=== PATIENT | male | born 1940 | race Caucasian/White ===

== ENCOUNTER 2016-11-04 07:18 | Emergency (ER) | payer MEDICARE ==
[~2016-11-04] VITALS: Ht 177.8 cm; Wt 91.6 kg
[~2016-11-04 07:18] MED LIST: ALPR0.25 PO; HYDR-3326 PO; ROSU5TAB PO; TELM80TA2 PO; TRAM50TA2 PO; [UNRECOGNIZED DRUG - CODE] IM
--- NOTE | 2016-11-04 07:20 | NUR ---
AAOX2, BIBRA 99 FROM HOME C/O SEIZURE UPON GETTING UP, [id number] IN THE FIELD. POST-ICTAL BUT IMPROVING PER PARAMEDICS. HX OF SEIZURE. SKIN IS WARM AND DRY. NO OBVIOUS TRAUMA NOTED. RESP IS EVEN AND UNLABORED WITH NAD NOTED. SEIZURE PRECAUTION IN PLACE. ASSISTED TO HOSPITAL GOWN, PLACED ON MONITOR. DR MEADE AT BS FOR EVAL.
[2016-11-04] MEDS ORDERED: IV NS 0.9% 500 ML IV ONE (07:25)
[2016-11-04] MEDS ORDERED: IV SET PRIMARY 1 EA INFUS.SET MC ONE (07:25)
[2016-11-04] MEDS ORDERED: LORAZEPAM INJ 2 MG/ML VIAL ONE (07:26)
[2016-11-04] MEDS ORDERED: LORAZEPAM INJ 2 MG/ML VIAL IVP ONE (07:30)
[2016-11-04] MEDS ORDERED: IV NS 0.9% 500 ML BAG IV ONE (07:30)
--- NOTE | 2016-11-04 07:34 | NUR ---
DR MEADE TALKING TO AT BS.
[2016-11-04 07:54] LABS: BASOPHILS # (AUTO) 0.1 /CMM (0.0-0.2); BASOPHILS % (AUTO) 0.5 % (0.0-2.0); EOSINOPHILS # (AUTO) 0.3 /CMM (0.0-0.7); EOSINOPHILS % (AUTO) 2.2 % (0.0-6.0); HEMATOCRIT 49 % (39-51); HEMOGLOBIN 15.4 g/dL (13.5-17.5); LYMPHOCYTES # (AUTO) 5.9 /CMM (0.8-4.8); MEAN CORPUSCULAR HEMOGLOBIN 26 PG (26.0-33.0); MEAN CORPUSCULAR HGB CONC 32 g/dl (31.0-36.0); MEAN CORPUSCULAR VOLUME 82 fL (80-96); MONOCYTES # (AUTO) 1.2 /CMM (0.1-1.30); NEUTROPHILS # (AUTO) 6.2 /CMM (1.8-8.9); NEUTROPHILS % (AUTO) 45.3 % (43.0-81.0); PLATELET COUNT (AUTO) 282 /CMM (150-450); RDW COEFFICIENT OF VARIATION 17.1 (11.5-15.0); RED BLOOD CELL COUNT(AUTO) 5.97 MIL/uL (4.5-6.0); WHITE BLOOD COUNT (AUTO) 13.7 K/uL (4.3-11.0)
[2016-11-04 08:05] LABS: CARBON DIOXIDE 13 mmol/L (21-32); CHLORIDE 100 mmol/L (98-107); CREATININE 1.8 mg/dL (0.6-1.3); GLUCOSE 175 mg/dL (74-106); POTASSIUM 3.6 mmol/L (3.5-5.1); SODIUM SERUM 139 mmol/L (136-145); UREA NITROGEN, BLOOD 20 mg/dL (7-18)
[2016-11-04 08:11] LABS: PHENOBARBITAL 1 ug/ml (15-39); PHENYTOIN (DILANTIN) < 0.5 ug/ml (10.0-20.0); VALPROIC ACID 2 ug/mL (50-100)
--- NOTE | 2016-11-04 08:50 | NUR ---
IV removed. Catheter intact and site benign. Pressure and 4x4 applied to site. No bleeding noted.
--- NOTE | 2016-11-04 08:57 | NUR ---
PT. VERBALIZED UNDERSTANDING OF AFTERCARE INSTRUCTIONS.Patient discharged to home in stable condition. Written and verbal after care instructions given. Patient verbalizes understanding of instruction.
[2016-11-04 08:58] VITALS: BP 131/62
== END 2016-11-04 08:58 | disposition home or self-care (01) ==
LOC: ER 07:19
DX: G40.409 Other generalized epilepsy and epileptic syndromes, not intractable, without status epilepticus (principal); I10 Essential (primary) hypertension; F40.00 Agoraphobia, unspecified; Z88.8 Allergy status to other drugs, medicaments and biological substances
CPT/HCPCS: 36415; 70450-TC; 80048-TC; 80164-TC; 80184-TC; 80185-TC; 82962-TC; 85025-TC; A4606; J2060; J7040; Z7610

== ENCOUNTER 2017-08-28 16:07 | Emergency (ER) | payer MEDICARE ==
[~2017-08-28] VITALS: Ht 170.2 cm; Wt 86.2 kg
[~2017-08-28 16:07] MED LIST changes: +CYAN-6 IM; -HYDR-3326 PO; +HYDR-3974 PO; -[UNRECOGNIZED DRUG - CODE] IM
[2017-08-28] MEDS ORDERED: IV NS 0.9% 1,000 ML BAG IV ONE (16:30)
--- NOTE | 2017-08-28 16:32 | NUR ---
20G RIGHT AC IV STARTED, BLOOD SAMLPE OBTAINED AND SENT TO LAB. BLOOD CULTURES OBTAINED AND SENT TO LAB. MEDICATED PT ORDERED
[2017-08-28 16:48] LABS: EOSINOPHILS # (AUTO) 0.4 /CMM (0.0-0.7); EOSINOPHILS % (AUTO) 4.3 % (0.0-6.0); HEMATOCRIT 50 % (39-51); HEMOGLOBIN 16.7 g/dL (13.5-17.5); LYMPHOCYTES # (AUTO) 0.5 /CMM (0.8-4.8); LYMPHOCYTES % (AUTO) 5.3 % (20.0-44.0); MEAN CORPUSCULAR HEMOGLOBIN 27 PG (26.0-33.0); MEAN CORPUSCULAR HGB CONC 34 g/dl (31.0-36.0); MEAN CORPUSCULAR VOLUME 79 fL (80-96); MONOCYTES # (AUTO) 0.8 /CMM (0.1-1.30); MONOCYTES % (AUTO) 8.4 % (2.0-12.0); NEUTROPHILS # (AUTO) 7.6 /CMM (1.8-8.9); PLATELET COUNT (AUTO) 190 /CMM (150-450); RDW COEFFICIENT OF VARIATION 17.6 (11.5-15.0); RED BLOOD CELL COUNT(AUTO) 6.25 MIL/uL (4.5-6.0); WHITE BLOOD COUNT (AUTO) 9.2 K/uL (4.3-11.0)
[2017-08-28 17:04] LABS: ALANINE AMINOTRANSFERASE 90 U/L (12-78); ALBUMIN 3.9 g/dL (3.4-5.0); ALKALINE PHOSPHATASE 62 U/L (46-116); ASPARTATE AMINOTRANSFERASE 51 U/L (15-37); BILIRUBIN,DIRECT 0.4 mg/dL (0.0-0.2); BILIRUBIN,TOTAL 1.4 mg/dL (0.2-1.0); CALCIUM, SERUM 9.1 mg/dL (8.5-10.1); CARBON DIOXIDE 27 mmol/L (21-32); CHLORIDE 97 mmol/L (98-107); CREATININE 1.6 mg/dL (0.6-1.3); GLUCOSE 112 mg/dL (74-106); POTASSIUM 4.3 mmol/L (3.5-5.1); SODIUM SERUM 132 mmol/L (136-145); TOTAL PROTEIN, SERUM 7.4 g/dL (6.4-8.2); UREA NITROGEN, BLOOD 22 mg/dL (7-18)
[2017-08-28 17:19] LABS: INR 1.14 (0.87-1.13)
--- NOTE | 2017-08-28 17:32 | NUR ---
PT AMB TO BR VOIDED UA SENT TO LAB BACK TO BED
[2017-08-28 18:08] LABS: APPEARANCE,URINE CLEAR (CLEAR); BILIRUBIN,URINE NEGATIVE (NEGATIVE); BLOOD, URINE NEGATIVE Ery/uL (NEGATIVE); COLOR,URINE YELLOW (YELLOW); KETONES,URINE TRACE (NEGATIVE); LEUKOCYTE ESTERASE ,URINE NEGATIVE (NEGATIVE); NITRITE, URINE NEGATIVE (NEGATIVE); PROTEIN,URINE 1+ mg/dl (NEGATIVE); UGLUCOSE NEGATIVE (NEGATIVE); UROBILINOGEN,URINE 0.2 EU/dL (0.2)
[2017-08-28 18:21] LABS: BACTERIA,URINE Rare /HPF (None Seen); RBC,URINE 0-2 /HPF (0-2); SQUAMOUS EPITHELIAL CELL,UR Rare /HPF (None Seen); WBC,URINE 0-2 /HPF (0-3)
--- NOTE | 2017-08-28 18:34 | NUR ---
PT. VERBALIZED UNDERSTANDING OF AFTERCARE INSTRUCTIONS.IV removed. Catheter intact and site benign. Pressure and 4x4 applied to site. No bleeding noted.Patient discharged to home in stable condition. Written and verbal after care instructions given. Patient verbalizes understanding of instruction.
[2017-08-28 18:38] VITALS: BP 169/100
== END 2017-08-28 18:39 | disposition home or self-care (01) ==
LOC: ER 16:09
DX: R50.9 Fever, unspecified (principal); M79.1 Myalgia; I10 Essential (primary) hypertension; I25.2 Old myocardial infarction; F41.9 Anxiety disorder, unspecified; Z96.641 Presence of right artificial hip joint; Z96.611 Presence of right artificial shoulder joint; Z95.811 Presence of heart assist device; Z88.0 Allergy status to penicillin; Z88.8 Allergy status to other drugs, medicaments and biological substances
CPT/HCPCS: 36415; 71045; 80048; 80076; 81001; 83605; 84484; 85025; 85730; 87040 ×2; 87086; 87804; 93005; 96360; 99285; A4606; 81000-TC; 87400; Z7610

== ENCOUNTER 2019-11-28 11:51 | Emergency (ER) | payer MEDICARE ==
[~2019-11-28] VITALS: Ht 170.2 cm; Wt 86.2 kg
--- NOTE | 2019-11-28 12:00 | NUR ---
BIB SENT BY DR. WEI FOR EKG. NO CHEST PAIN PER PATIENT
[2019-11-28] MEDS ORDERED: AMLODIPINE BESYLATE 5 MG TABLET PO ONE (12:30)
--- NOTE | 2019-11-28 12:31 | NUR ---
HIGH BLOOD PRESSURE, INFORMED DR. MEDEROS.
[2019-11-28] MEDS ORDERED: AMLODIPINE BESYLATE 5 MG TABLET ONE (12:34)
--- NOTE | 2019-11-28 13:06 | NUR ---
Patient a/ox4, breathing even and unlabored, no sob noted, denies chest pain, EKG copy provided. Patient discharged to home in stable condition. Written and verbal after care instructions given. Patient verbalizes understanding of instruction.
[2019-11-28 13:10] VITALS: BP 160/90
== END 2019-11-28 13:10 | disposition home or self-care (01) ==
LOC: ER 11:51
DX: R61 Generalized hyperhidrosis (principal); I10 Essential (primary) hypertension; F41.9 Anxiety disorder, unspecified; Z98.890 Other specified postprocedural states; Z88.0 Allergy status to penicillin; Z88.8 Allergy status to other drugs, medicaments and biological substances; Z79.899 Other long term (current) drug therapy

== ENCOUNTER 2020-08-06 23:14 | Emergency (ER) | payer MEDICARE ==
[~2020-08-06] VITALS: Ht 165.1 cm; Wt 77.1 kg
[2020-08-06] MEDS ORDERED: ONDANSETRON 4 MG TAB.RAPDIS ONE (23:48)
[2020-08-06] MEDS ORDERED: MORPHINE SULFATE INJ 4 MG/ML DISP.SYRIN ONE (23:48)
--- NOTE | 2020-08-06 23:50 | NUR ---
BROUGHT TO CT
[2020-08-06] MEDS: ONDANSETRON 4 MG TAB.RAPDIS SL ONE (23:55)
[2020-08-06] MEDS: MORPHINE SULFATE INJ 2 MG/ML DISP.SYRIN IM ONE (23:55)
--- NOTE | 2020-08-07 01:28 | NUR ---
Patient discharged to home in stable condition. Written and verbal after care instructions given. Patient verbalizes understanding of instruction. Pt ambulated out of ED. VSS.
[2020-08-07 01:32] VITALS: BP 151/89
== END 2020-08-07 01:32 | disposition home or self-care (01) ==
LOC: ER 23:14
DX: G89.29 Other chronic pain (principal); M54.5 Low back pain; I10 Essential (primary) hypertension; F41.9 Anxiety disorder, unspecified; Z98.890 Other specified postprocedural states; Z96.641 Presence of right artificial hip joint; Z88.0 Allergy status to penicillin; Z88.8 Allergy status to other drugs, medicaments and biological substances; Z79.899 Other long term (current) drug therapy
CPT/HCPCS: 72131; 96372; 99284; J2270; Q0162

== ENCOUNTER 2024-05-15 02:18 | Inpatient (IN) | payer MEDICARE ==
[~2024-05-15] VITALS: Ht 170.2 cm; Wt 81.6 kg
[2024-05-15 03:32] LABS: BASOPHILS % (AUTO) 0.1 % (0.0-2.0); EOSINOPHILS # (AUTO) 0.2 K/uL (0.0-0.7); EOSINOPHILS % (AUTO) 1.4 % (0.0-6.0); HEMATOCRIT 50 % (39-51); HEMOGLOBIN 16.1 g/dL (13.5-17.5); LYMPHOCYTES # (AUTO) 1.1 K/uL (0.8-4.8); LYMPHOCYTES % (AUTO) 6.7 % (20.0-44.0); MEAN CORPUSCULAR HEMOGLOBIN 28 PG (26.0-33.0); MEAN CORPUSCULAR HGB CONC 32 g/dl (31.0-36.0); MEAN CORPUSCULAR VOLUME 87 fL (80-96); MONOCYTES # (AUTO) 1.3 K/uL (0.1-1.30); MONOCYTES % (AUTO) 7.8 % (2.0-12.0); NEUTROPHILS # (AUTO) 14.1 K/uL (1.8-8.9); PLATELET COUNT (AUTO) 234 K/uL (150-450); RED BLOOD CELL COUNT(AUTO) 5.71 MIL/uL (4.5-6.0); RED CELL DISTRIBUTION WIDTH 18.5 % (11.5-15.0); WHITE BLOOD COUNT (AUTO) 16.8 K/uL (4.3-11.0)
[2024-05-15 03:40] LABS: CALCIUM, SERUM 9.8 mg/dL (8.5-10.1); CARBON DIOXIDE 27 mmol/L (21-32); CHLORIDE 104 mmol/L (98-107); CREATININE 1.6 mg/dL (0.6-1.3); GLUCOSE 111 mg/dL (74-106); POTASSIUM 4.6 mmol/L (3.5-5.1); SODIUM SERUM 139 mmol/L (136-145); UREA NITROGEN, BLOOD 23 mg/dL (7-18)
[2024-05-15 03:52] LABS: ALANINE AMINOTRANSFERASE 27 U/L (12-78); ALBUMIN 4.1 g/dL (3.4-5.0); ALKALINE PHOSPHATASE 66 U/L (46-116); ASPARTATE AMINOTRANSFERASE 16 U/L (15-37); BILIRUBIN,TOTAL 1.2 mg/dL (0.2-1.0); NT-PRO BNP 333 pg/mL (0-125); TOTAL PROTEIN, SERUM 7.2 g/dL (6.4-8.2)
[2024-05-15] MEDS: IV NS 0.9% 1,000 ML IV ONE (04:29)
[2024-05-15 04:36] LABS: APPEARANCE,URINE CLEAR (CLEAR); BILIRUBIN,URINE NEGATIVE (NEGATIVE); BLOOD, URINE NEGATIVE Ery/uL (NEGATIVE); COLOR,URINE YELLOW (YELLOW); KETONES,URINE NEGATIVE (NEGATIVE); LEUKOCYTE ESTERASE ,URINE NEGATIVE (NEGATIVE); NITRITE, URINE NEGATIVE (NEGATIVE); PROTEIN,URINE NEGATIVE (NEGATIVE); UGLUCOSE NEGATIVE (NEGATIVE); UROBILINOGEN,URINE 0.2 EU/dL (0.2)
[2024-05-15] MEDS ORDERED: VANCOMYCIN 1 GM /D5W 250 ML PB IV ONE (05:15)
[2024-05-15] MEDS: VANCOMYCIN HCL 1.25 GM in IV D5W 260 ML IV ONE (05:16)
[2024-05-15] MEDS ORDERED: Z GUARD REMEDY 4 OZ OINT TP PRN (06:00)
[2024-05-15] MEDS ORDERED: ACETAMINOPHEN 650 MG/SUPP.RECT RC PRN (06:00)
[2024-05-15] MEDS ORDERED: ONDANSETRON HCL/PF 4 MG/2 ML VIAL IVP PRN (06:00)
[2024-05-15] MEDS ORDERED: IOHEXOL-300 100 ML VIAL IV ONE (06:07)
[2024-05-15] MEDS ORDERED: CT SWABBABLE VALVE TRANS SET 1 EA INFUS.SET MC ONE (06:08)
[2024-05-15] MEDS ORDERED: IV NS 0.9% 250 ML IV ONE (06:08)
[2024-05-15] MEDS ORDERED: MORPHINE SULFATE INJ 2 MG/ML DISP.SYRIN ONE (06:59)
[2024-05-15] MEDS ORDERED: ONDANSETRON HCL/PF 4 MG/2 ML VIAL ONE (06:59)
[2024-05-15] MEDS: ONDANSETRON HCL/PF - ER 4 MG/2 ML VIAL IV ONE (07:03)
[2024-05-15] MEDS: MORPHINE SULFATE INJ 2 MG/ML DISP.SYRIN IV ONE (07:03)
[2024-05-15 07:14] LABS: BASOPHILS % (AUTO) 0.2 % (0.0-2.0); EOSINOPHILS # (AUTO) 0.2 K/uL (0.0-0.7); EOSINOPHILS % (AUTO) 1.2 % (0.0-6.0); HEMATOCRIT 49 % (39-51); HEMOGLOBIN 15.6 g/dL (13.5-17.5); LYMPHOCYTES # (AUTO) 1.3 K/uL (0.8-4.8); LYMPHOCYTES % (AUTO) 7.7 % (20.0-44.0); MEAN CORPUSCULAR HEMOGLOBIN 28 PG (26.0-33.0); MEAN CORPUSCULAR HGB CONC 32 g/dl (31.0-36.0); MEAN CORPUSCULAR VOLUME 87 fL (80-96); MONOCYTES # (AUTO) 1.2 K/uL (0.1-1.30); MONOCYTES % (AUTO) 7.2 % (2.0-12.0); NEUTROPHILS # (AUTO) 13.7 K/uL (1.8-8.9); NEUTROPHILS % (AUTO) 83.7 % (43.0-81.0); PLATELET COUNT (AUTO) 210 K/uL (150-450); RED BLOOD CELL COUNT(AUTO) 5.57 MIL/uL (4.5-6.0); RED CELL DISTRIBUTION WIDTH 18.5 % (11.5-15.0); WHITE BLOOD COUNT (AUTO) 16.3 K/uL (4.3-11.0)
[2024-05-15 07:18] LABS: BILIRUBIN,DIRECT 0.4 mg/dL (0.0-0.2)
[2024-05-15 07:31] LABS: CALCIUM, SERUM 9.1 mg/dL (8.5-10.1); CARBON DIOXIDE 27 mmol/L (21-32); CHLORIDE 102 mmol/L (98-107); CREATININE 1.5 mg/dL (0.6-1.3); GLUCOSE 110 mg/dL (74-106); MAGNESIUM 1.7 mg/dL (1.8-2.4); NT-PRO BNP 381 pg/mL (0-125); PHOSPHORUS 2.7 mg/dL (2.5-4.9); POTASSIUM 4.3 mmol/L (3.5-5.1); SODIUM SERUM 136 mmol/L (136-145); UREA NITROGEN, BLOOD 20 mg/dL (7-18)
[2024-05-15] MEDS ORDERED: LEVOFLOXACIN 750 MG /D5W 150ML 150 ML IV ONE (07:51)
[2024-05-15 08:00] LABS: LACTIC ACID REFLEX 2.7 mmol/L (0.4-1.9)
[2024-05-15] MEDS: LEVOFLOXACIN 750 MG /D5W 150ML PIGGYBACK IV ONE (08:02)
[2024-05-15 08:35] VITALS: O2SAT 98
[2024-05-15 09:00] VITALS: BP 144/84; TEMP 98.6; O2SAT 95
[2024-05-15] MEDS ORDERED: CYAN10006 IM (09:42)
[2024-05-15] MEDS ORDERED: CHOL500062 PO (09:42)
[2024-05-15] MEDS ORDERED: OXYC1TAB8 PO (09:42)
[2024-05-15] MEDS ORDERED: ROSU5TAB PO (09:42)
[2024-05-15] MEDS ORDERED: HYDR12.55 PO (09:42)
[2024-05-15] MEDS ORDERED: LAMO100T17 PO (09:42)
[2024-05-15] MEDS ORDERED: ASPI-1420 PO (09:42)
[2024-05-15] MEDS ORDERED: IBUP-23 PO (09:42)
[2024-05-15] MEDS ORDERED: TELM80TA9 PO (09:42)
[2024-05-15] MEDS ORDERED: TEST200V3 IM (09:42)
[2024-05-15] MEDS: PANTOPRAZOLE 40 MG VIAL IV SCH (11:06)
[2024-05-15] MEDS: IV NS 0.9% 1,000 ML IV PRN (11:59)
[2024-05-15] MEDS: Magnesium 1GM/D5W 100ML PREMIX 100 ML IV SCH (11:59)
[2024-05-15 12:00] VITALS: BP 126/85; TEMP 99.3; O2SAT 96
[2024-05-15] MEDS ORDERED: IBUPROFEN 200 MG TABLET PO PRN (14:30)
[2024-05-15] MEDS ORDERED: TESTOSTERONE CYPIONATE IM SCH (14:30)
[2024-05-15] MEDS: VANCOMYCIN 750 MG in IV D5W 250 ML IV SCH (15:07)
[2024-05-15] MEDS: oxyCODONE/APAP (5/325 MG) 1 UDTAB TABLET PO PRN (15:24)
[2024-05-15] MEDS: LamoTRIgine 100 MG TABLET PO SCH (15:26)
[2024-05-15 16:00] VITALS: BP 117/73; TEMP 98.8; O2SAT 93
[2024-05-15] MEDS: ASPIRIN EC 81 MG TABLET.DR PO SCH (17:26)
[2024-05-15] MEDS: ATORVASTATIN 10 MG TABLET PO SCH (17:26)
[2024-05-15] MEDS ORDERED: ROSUVASTATIN CALCIUM 2.5 MG PO SCH (18:00)
[2024-05-15] MEDS ORDERED: ENOXAPARIN SODIUM 40 MG/0.4 ML DISP.SYRIN SQ SCH (18:30)
[2024-05-15] MEDS: HEPARIN SODIUM, PORCINE 5000 UNITS/1 ML VIAL SQ SCH (21:00)
[2024-05-15 21:10] VITALS: BP 104/62; TEMP 98.6; O2SAT 98
[2024-05-16 06:45] LABS: BASOPHILS % (AUTO) 0.2 % (0.0-2.0); EOSINOPHILS # (AUTO) 0.2 K/uL (0.0-0.7); EOSINOPHILS % (AUTO) 1.4 % (0.0-6.0); HEMATOCRIT 41 % (39-51); HEMOGLOBIN 13.4 g/dL (13.5-17.5); LYMPHOCYTES # (AUTO) 1.2 K/uL (0.8-4.8); LYMPHOCYTES % (AUTO) 9.4 % (20.0-44.0); MEAN CORPUSCULAR HEMOGLOBIN 29 PG (26.0-33.0); MEAN CORPUSCULAR HGB CONC 33 g/dl (31.0-36.0); MEAN CORPUSCULAR VOLUME 88 fL (80-96); MONOCYTES % (AUTO) 7.9 % (2.0-12.0); NEUTROPHILS # (AUTO) 10.5 K/uL (1.8-8.9); NEUTROPHILS % (AUTO) 81.1 % (43.0-81.0); PLATELET COUNT (AUTO) 179 K/uL (150-450); RED BLOOD CELL COUNT(AUTO) 4.66 MIL/uL (4.5-6.0)
[2024-05-16 06:51] LABS: CALCIUM, SERUM 9.1 mg/dL (8.5-10.1); CARBON DIOXIDE 26 mmol/L (21-32); CHLORIDE 102 mmol/L (98-107); CREATININE 1.5 mg/dL (0.6-1.3); GLUCOSE 96 mg/dL (74-106); PHOSPHORUS 2.5 mg/dL (2.5-4.9); POTASSIUM 5.3 mmol/L (3.5-5.1); SODIUM SERUM 135 mmol/L (136-145); UREA NITROGEN, BLOOD 26 mg/dL (7-18)
[2024-05-16 08:00] VITALS: BP 163/80; TEMP 97.9; O2SAT 95
[2024-05-16] MEDS: CHOLECALCIFEROL 1,000 UNIT TABLET (VIT D3) PO SCH (08:46)
[2024-05-16] MEDS: PANTOPRAZOLE 40 MG TABLET.DR PO SCH (08:46)
[2024-05-16] MEDS: HYDROCHLOROTHIAZIDE 25 MG TABLET PO SCH (08:46)
[2024-05-16] MEDS: LOSARTAN POTASSIUM 50 MG TABLET PO SCH (08:46)
[2024-05-16] MEDS ORDERED: METR500T PO (09:00)
[2024-05-16] MEDS ORDERED: CIPR500S2 PO (09:00)
[2024-06-14] MEDS ORDERED: CYANOCOBALAMIN 1,000 MCG/ML VIAL IM SCH (09:00)
== END 2024-05-16 11:20 | disposition home or self-care (01) | DRG 371 ==
LOC: ER 02:20 → TELE 06:26 → MED 08:30
PROVIDERS: ADMIT Student in an Organized Health Care Education/Training Program; ATTEND Student in an Organized Health Care Education/Training Program
DX: A04.9 Bacterial intestinal infection, unspecified (principal); I21.A1 Myocardial infarction type 2; N17.9 Acute kidney failure, unspecified; E87.1 Hypo-osmolality and hyponatremia; K55.8 Other vascular disorders of intestine; G40.909 Epilepsy, unspecified, not intractable, without status epilepticus; K59.00 Constipation, unspecified; E66.9 Obesity, unspecified; E78.5 Hyperlipidemia, unspecified; I25.2 Old myocardial infarction; Z88.0 Allergy status to penicillin; Z95.5 Presence of coronary angioplasty implant and graft; Z90.49 Acquired absence of other specified parts of digestive tract; Z98.1 Arthrodesis status; N40.0 Benign prostatic hyperplasia without lower urinary tract symptoms; I12.9 Hypertensive chronic kidney disease with stage 1 through stage 4 chronic kidney disease, or unspecified chronic kidney disease; N18.9 Chronic kidney disease, unspecified; I25.10 Atherosclerotic heart disease of native coronary artery without angina pectoris; E87.5 Hyperkalemia; F41.9 Anxiety disorder, unspecified; Z68.28 Body mass index [BMI] 28.0-28.9, adult; D72.829 Elevated white blood cell count, unspecified; K76.9 Liver disease, unspecified; Z96.641 Presence of right artificial hip joint; Z96.611 Presence of right artificial shoulder joint
CPT/HCPCS: 36415; 71045-TC; 76700-TC; 80048-TC; 80053-TC; 82248-TC; 83605-TC; 83735-TC; 83880; 84100-TC; 84484-TC; 85025-TC; 87040-TC; 93307-TC; A4223; G0378; J1956; J2270; J2405; J2470; J3370; J3371; J3475; J7030; J7050; J7060; Q9967